=== PATIENT | female | born 1960 | race Caucasian/White ===

== ENCOUNTER → 2017-06-16 | Outpatient (CLI) | payer OTHER | END | disposition home or self-care (01) | LOC: CFH 13:45 | PROVIDERS: ATTEND Family Medicine | DX: Z12.2 Encounter for screening for malignant neoplasm of respiratory organs (principal); C43.9 Malignant melanoma of skin, unspecified; K21.9 Gastro-esophageal reflux disease without esophagitis; F17.210 Nicotine dependence, cigarettes, uncomplicated; J45.909 Unspecified asthma, uncomplicated; R63.4 Abnormal weight loss; G89.29 Other chronic pain; R10.9 Unspecified abdominal pain | CPT/HCPCS: G0297 ==

== ENCOUNTER → 2017-12-17 | Outpatient (CLI) | payer OTHER | END | disposition home or self-care (01) | LOC: CFH 07:30 | PROVIDERS: ATTEND Family Medicine | DX: R14.0 Abdominal distension (gaseous) (principal); R63.4 Abnormal weight loss; G35 Multiple sclerosis | CPT/HCPCS: 76700 ==

== ENCOUNTER 2018-02-15 12:28 | Observation (INO) | payer OTHER ==
[~2018-02-15] VITALS: Ht 157.5 cm; Wt 60.2 kg
[2018-02-15] MEDS ORDERED: IBUPROFEN 600 MG TABLET PO PRN (16:00)
[2018-02-15] MEDS ORDERED: NICOTINE 7 MG/24 HR PATCH.TD24 TD SCH (16:00)
[2018-02-15] MEDS ORDERED: hydrALAzine 20 MG/ML, 1ML IVPush PRN (16:00)
[2018-02-15] MEDS ORDERED: LABETALOL 5MG/ML, 20ML IVPush PRN (16:00)
[2018-02-15] MEDS ORDERED: ENOXAPARIN 40 MG/0.4 ML SQ SCH (16:00)
[2018-02-15] MEDS ORDERED: BISACODYL 10 MG SUPP PR PRN (16:00)
[2018-02-15] MEDS ORDERED: ACETAMINOPHEN 325 MG TABLET PO PRN (16:00)
[2018-02-15] MEDS ORDERED: ONDANSETRON ODT 4 MG PO PRN (16:00)
[2018-02-15] MEDS: PLEASE ENTER ALLERGIES MC SCH ×2 (16:22→16:59)
[2018-02-15] MEDS: PLEASE ENTER HEIGHT AND WEIGHT MC SCH (16:22)
[2018-02-15 18:38] VITALS: BP 118/76
[2018-02-15] MEDS: OXYcodone/APAP 5/325MG TABLET PO PRN (18:45)
[2018-02-15] MEDS ORDERED: PANT40GR PO (20:04)
[2018-02-15] MEDS ORDERED: DOCU-131 PO (20:07)
[2018-02-15] MEDS ORDERED: MONT5TAB6 PO (20:07)
[2018-02-15] MEDS ORDERED: CYCL-259 PO (20:07)
[2018-02-15] MEDS ORDERED: OXYC-302 PO (20:07)
[2018-02-16] MEDS: PLEASE ENTER HEIGHT AND WEIGHT MC SCH (00:30)
[2018-02-16 01:32] VITALS: BP 138/70
[2018-02-16] MEDS: OXYcodone/APAP 5/325MG TABLET PO PRN ×4 (01:37→13:50)
[2018-02-16 05:57] LABS: BASOPHILS # (AUTO) 0.04 x10^3/uL (0-0.1); BASOPHILS % (AUTO) 1 % (0-1); EOSINOPHILS # (AUTO) 0.14 x10^3/uL (0-0.4); EOSINOPHILS % (AUTO) 3 % (1-7); LYMPHOCYTES # (AUTO) 2.06 x10^3/uL (1-3.4); LYMPHOCYTES % (AUTO) 45 % (22-44); MD NO; MEAN CORPUSCULAR HEMOGLOBIN 28.9 pg (27.0-34.8); MEAN CORPUSCULAR HGB CONC 33.3 g/dL (32.4-35.8); MEAN CORPUSCULAR VOLUME 86.9 fL (80-100); MEAN PLATELET VOLUME 8.7 fL (7.4-10.4); MONOCYTES # (AUTO) 0.45 x10^3/uL (0.2-0.8); MONOCYTES % (AUTO) 10 % (2-9); NEUTROPHILS % (AUTO) 41 % (42-75); PLATELET COUNT 210 x10^3/uL (130-400); RED CELL DISTRIBUTION WIDTH 15.2 % (9.6-15.2)
[2018-02-16] MEDS ORDERED: OMEPRAZOLE 20 MG CAPSULE.DR PO SCH (06:00)
[2018-02-16 06:08] LABS: ANION GAP 6 mmol/L (5-15); CALCIUM 8.5 mg/dL (8.5-10.1); CHLORIDE 109 mmol/L (98-107); CREATININE 0.87 mg/dL (0.55-1.02)
[2018-02-16 07:28] VITALS: BP 121/71
[2018-02-16] MEDS ORDERED: SENNA/DOCUSATE TABLET PO SCH (09:00)
[2018-02-16 13:12] VITALS: BP 106/70
[2018-02-16] MEDS ORDERED: OMEP-110 PO (14:36)
[2018-02-16] MEDS ORDERED: OXYC-302 PO (14:37)
[2018-02-16] MEDS ORDERED: METO25TA91 PO (14:38)
== END 2018-02-16 14:55 | disposition home or self-care (01) ==
LOC: INTOOBSV 15:17 → 5SO 15:17 → DCLOUNGE 02-16 14:41
PROVIDERS: ADMIT Family Medicine; ATTEND Family Medicine
DX: T40.2X1A Poisoning by other opioids, accidental (unintentional), initial encounter (principal); T46.5X1A Poisoning by other antihypertensive drugs, accidental (unintentional), initial encounter; I42.9 Cardiomyopathy, unspecified; G89.29 Other chronic pain; F17.200 Nicotine dependence, unspecified, uncomplicated; Y92.89 Other specified places as the place of occurrence of the external cause
CPT/HCPCS: 36415; 80048; 83735; 84100; 85025; G0378

== ENCOUNTER → 2018-07-20 | Outpatient (CLI) | payer OTHER ==
[~2018-07-20] MED LIST: CYCL-259 PO; DOCU-131 PO; METO25TA91 PO; MONT5TAB6 PO; OMEP-110 PO; OXYC-302 PO; PANT40GR PO
== END | disposition home or self-care (01) ==
LOC: CFH 11:26
PROVIDERS: ATTEND Nurse Practitioner Family
DX: R63.4 Abnormal weight loss (principal)
CPT/HCPCS: 74018

== ENCOUNTER → 2018-07-21 | Outpatient (CLI) | payer OTHER | END | disposition home or self-care (01) | LOC: CFH 11:21 | PROVIDERS: ATTEND Family Medicine | DX: Z12.2 Encounter for screening for malignant neoplasm of respiratory organs (principal); R63.4 Abnormal weight loss; F17.200 Nicotine dependence, unspecified, uncomplicated | CPT/HCPCS: 74018; G0297 ==

== ENCOUNTER → 2018-07-28 | Outpatient (CLI) | payer OTHER ==
[~2018-07-28] MED LIST changes: +REGADENOSON 0.4 MG/5 ML SYRINGE ONE
== END | disposition home or self-care (01) ==
LOC: CFH 12:35
PROVIDERS: ATTEND Internal Medicine Cardiovascular Disease
DX: Z01.810 Encounter for preprocedural cardiovascular examination (principal); I34.0 Nonrheumatic mitral (valve) insufficiency
CPT/HCPCS: 78452; 93017; A9502; J2785

== ENCOUNTER 2018-08-18 11:43 | Emergency (ER) | payer OTHER ==
[~2018-08-18] VITALS: Ht 167.6 cm; Wt 53.9 kg
[~2018-08-18 11:43] MED LIST changes: -REGADENOSON 0.4 MG/5 ML SYRINGE ONE
[2018-08-18 12:28] LABS: BASOPHILS # (AUTO) 0.05 x10^3/uL (0-0.1); BASOPHILS % (AUTO) 1 % (0-1); EOSINOPHILS # (AUTO) 0.06 x10^3/uL (0-0.4); EOSINOPHILS % (AUTO) 1 % (1-7); LYMPHOCYTES # (AUTO) 1.51 x10^3/uL (1-3.4); LYMPHOCYTES % (AUTO) 25 % (22-44); MD NO; MEAN CORPUSCULAR HEMOGLOBIN 26.4 pg (27.0-34.8); MEAN CORPUSCULAR HGB CONC 31.5 g/dL (32.4-35.8); MEAN CORPUSCULAR VOLUME 83.8 fL (80-100); MEAN PLATELET VOLUME 8.7 fL (7.4-10.4); MONOCYTES # (AUTO) 0.37 x10^3/uL (0.2-0.8); MONOCYTES % (AUTO) 6 % (2-9); NEUTROPHILS # (AUTO) 3.98 x10^3/uL (1.8-6.8); NEUTROPHILS % (AUTO) 67 % (42-75); PLATELET COUNT 299 x10^3/uL (130-400); RED BLOOD COUNT 3.79 x10^6/uL (3.82-5.3); RED CELL DISTRIBUTION WIDTH 17.6 % (9.6-15.2)
[2018-08-18 12:40] LABS: ALANINE AMINOTRANSFERASE 11 U/L (12-78); ALBUMIN 2.7 g/dL (3.4-5.0); ANION GAP 5 mmol/L (5-15); CALCIUM 8.4 mg/dL (8.5-10.1); CHLORIDE 105 mmol/L (98-107)
[2018-08-18 12:43] LABS: ALKALINE PHOSPHATASE 59 U/L (45-117); BILIRUBIN,TOTAL 0.5 mg/dL (0.2-1.0); CREATININE 0.92 mg/dL (0.55-1.02); TOTAL PROTEIN 5.8 g/dL (6.4-8.2)
--- NOTE | 2018-08-18 15:39 | NUR ---
AMBULATORY TO ROOM FROM LOBBY. NAD.
--- NOTE | 2018-08-18 15:46 | NUR ---
pt to room from lobby, changed into gown, responds approp to staff, NAD at rest, comfort measure provided, call light within reach.
[2018-08-18] MEDS ORDERED: METHYLNALTREXONE 12 MG/0.6 ML SYR SQ ONE (15:55)
[2018-08-18] MEDS ORDERED: METHYLNALTREXONE 12 MG/0.6 ML SQ ONE (16:00)
[2018-08-18 16:21] LABS: MICROSCOPIC NOT IND
[2018-08-18 16:28] LABS: CULTURE INDICATED? NO
[2018-08-18] MEDS ORDERED: OMNIPAQUE 350 MG/ML, 100ML BOTTLE ONE (16:28)
[2018-08-18 17:01] VITALS: BP 134/59
--- NOTE | 2018-08-18 17:01 | NUR ---
pt continues to lay on gurney awake & calm, watching TV, responds approp to staff, NAD at rest, comfort measure provided, call light within reach.
--- NOTE | 2018-08-18 17:25 | NUR ---
Patient given discharge instructions and Rx, they have confirmed that they understand the instructions. Patient ambulatory with steady gait.
== END 2018-08-18 17:26 | disposition home or self-care (01) ==
LOC: ED 17:05
DX: K59.00 Constipation, unspecified (principal); R10.32 Left lower quadrant pain
CPT/HCPCS: 36415; 74021; 74177; 80053; 81003; 85025; 96372; 99284; Q9967

== ENCOUNTER 2018-10-27 11:02 | Outpatient (CLI) | payer OTHER | END 2018-10-27 23:59 | disposition home or self-care (01) | LOC: RAD 11:02 | PROVIDERS: ATTEND Family Medicine | DX: R60.0 Localized edema (principal) ==

== ENCOUNTER 2018-12-24 12:14 | Outpatient (CLI) | payer OTHER ==
[2018-12-24] MEDS ORDERED: OMNIPAQUE 350 MG/ML, 100ML BOTTLE ONE (16:16)
== END 2018-12-24 23:59 | disposition home or self-care (01) ==
LOC: CFH 12:14
PROVIDERS: ATTEND Family Medicine
DX: R60.0 Localized edema (principal); R59.1 Generalized enlarged lymph nodes; J98.4 Other disorders of lung
CPT/HCPCS: 74174; Q9967

== ENCOUNTER 2019-06-28 06:53 | Day surgery (SDC) | payer OTHER ==
[~2019-06-28] VITALS: Ht 157.5 cm; Wt 56.0 kg
[~2019-06-28 06:53] MED LIST changes: +CYAN100T2 PO; +FERR-46 PO; +FLUT1DIS3 INH; +FOLI-17 PO; +FURO20TA3 PO; +MONT10TA6 PO; +PAIN PUMP; +POTA10TA5 PO; +TIZA4CAP PO
[2019-06-28] MEDS ORDERED: LACTATED RINGERS 1,000 ML IV SCH (07:10)
[2019-06-28 07:22] VITALS: BP 88/55
[2019-06-28] MEDS ORDERED: CHLORHEXIDINE 15 ML UDC MM ONE (07:30)
[2019-06-28] MEDS ORDERED: LIDOCAINE-MPF 1%, 2ML INFIL ONE (07:30)
[2019-06-28] MEDS ORDERED: FENTANYL PF 100 MCG/2ML ONE (08:25)
[2019-06-28] MEDS ORDERED: ONDANSETRON 2MG/ML, 2ML ONE (08:44)
[2019-06-28] MEDS ORDERED: NEOSTIGMINE 1 MG/ML, 10ML ONE (08:44)
[2019-06-28] MEDS ORDERED: SUCCINYLCHOLINE 20 MG/ML, 10ML ONE (08:44)
[2019-06-28] MEDS ORDERED: GLYCOPYRROLATE 0.2MG/1ML, 5ML ONE (08:44)
[2019-06-28] MEDS ORDERED: DEXAMETHASONE 4 MG/ML, 1ML ONE (08:44)
[2019-06-28] MEDS ORDERED: ROCURONIUM 10MG/ML,5ML ONE (08:44)
[2019-06-28] MEDS ORDERED: PROPOFOL 10 MG/ML, 20ML ONE (08:44)
[2019-06-28] MEDS ORDERED: CEFAZOLIN 1,000 MG ONE (08:44)
[2019-06-28] MEDS ORDERED: ONDANSETRON 2MG/ML, 2ML IV PRN (09:00)
[2019-06-28] MEDS ORDERED: FENTANYL PF 100 MCG/2ML IV PRN (09:00)
[2019-06-28] MEDS ORDERED: ACETAMINOPHEN 325 MG TABLET PO PRN (09:00)
[2019-06-28] MEDS ORDERED: LORazepam 2 MG/ML, 1ML IVPush PRN (09:00)
[2019-06-28] MEDS ORDERED: OXYcodone 5 MG/5 ML ORAL.SOL UDC PO PRN (09:00)
[2019-06-28] MEDS ORDERED: PROMETHAZINE 25 MG/ML, 1ML IV PRN (09:00)
[2019-06-28] MEDS ORDERED: HYDROmorphone 2 MG/ML, 1ML IVPush PRN (09:00)
[2019-06-28] MEDS ORDERED: PROMETHAZINE 25 MG SUPP PR PRN (09:00)
[2019-06-28] MEDS ORDERED: ONDANSETRON ODT 8 MG PO PRN (09:00)
[2019-06-28] MEDS ORDERED: OXYcodone 5 MG/5 ML ORAL.SOL UDC ONE (09:26)
== END 2019-06-28 11:10 | disposition home or self-care (01) ==
LOC: OUT 06:53
PROVIDERS: ATTEND Internal Medicine Geriatric Medicine
DX: K31.89 Other diseases of stomach and duodenum (principal); K31.7 Polyp of stomach and duodenum; K59.09 Other constipation; K21.9 Gastro-esophageal reflux disease without esophagitis; I25.2 Old myocardial infarction; J45.909 Unspecified asthma, uncomplicated; E88.09 Other disorders of plasma-protein metabolism, not elsewhere classified; D50.0 Iron deficiency anemia secondary to blood loss (chronic); Z79.899 Other long term (current) drug therapy; Z88.8 Allergy status to other drugs, medicaments and biological substances; Z90.49 Acquired absence of other specified parts of digestive tract; Z90.5 Acquired absence of kidney; Z90.710 Acquired absence of both cervix and uterus; Z98.890 Other specified postprocedural states
CPT/HCPCS: 43236; 43251; 43259; 88305; 93005; J0330; J0690; J1100; J2405; J2704; J2710; J3010; J7120

== ENCOUNTER → 2019-07-13 | Outpatient (CLI) | payer OTHER ==
[~2019-07-13] VITALS: Ht 157.5 cm; Wt 56.4 kg
[~2019-07-13] MED LIST changes: +FERRIC CARBOXYMALTOSE 750 MG in SODIUM CHLORIDE 0.9% 100 ML IV ONE
[2019-07-13 15:12] VITALS: BP 82/43
== END | disposition home or self-care (01) ==
LOC: INFUSION 13:58
PROVIDERS: ATTEND Internal Medicine Nephrology
DX: N18.3 Chronic kidney disease, stage 3 (moderate) (principal); D63.1 Anemia in chronic kidney disease; R53.83 Other fatigue; I25.2 Old myocardial infarction; K21.9 Gastro-esophageal reflux disease without esophagitis; J45.909 Unspecified asthma, uncomplicated; Z90.49 Acquired absence of other specified parts of digestive tract; Z90.710 Acquired absence of both cervix and uterus
CPT/HCPCS: 96365; J1439

== ENCOUNTER → 2019-07-21 | Outpatient (CLI) | payer OTHER ==
[~2019-07-21] VITALS: Ht 157.5 cm; Wt 58.0 kg
[2019-07-21 16:30] VITALS: BP 94/56
== END | disposition home or self-care (01) ==
LOC: INFUSION 09:53
PROVIDERS: ATTEND Internal Medicine Nephrology
DX: E61.1 Iron deficiency (principal); I12.9 Hypertensive chronic kidney disease with stage 1 through stage 4 chronic kidney disease, or unspecified chronic kidney disease; N18.3 Chronic kidney disease, stage 3 (moderate); D63.1 Anemia in chronic kidney disease; R53.83 Other fatigue; N13.729 Vesicoureteral-reflux with reflux nephropathy without hydroureter, unspecified; Q60.0 Renal agenesis, unilateral; M54.5 Low back pain; K21.9 Gastro-esophageal reflux disease without esophagitis; I25.2 Old myocardial infarction; F41.9 Anxiety disorder, unspecified; F32.9 Major depressive disorder, single episode, unspecified; Z79.899 Other long term (current) drug therapy; Z90.710 Acquired absence of both cervix and uterus; Z90.5 Acquired absence of kidney; Z90.49 Acquired absence of other specified parts of digestive tract
CPT/HCPCS: 96365; J1439

== ENCOUNTER → 2020-01-10 | Outpatient (CLI) | payer OTHER ==
[~2020-01-10] MED LIST changes: -CYAN100T2 PO; +CYAN100T22 PO; -FERRIC CARBOXYMALTOSE 750 MG in SODIUM CHLORIDE 0.9% 100 ML IV ONE
== END | disposition home or self-care (01) ==
LOC: CFH 10:20
PROVIDERS: ATTEND Nurse Practitioner
DX: M46.1 Sacroiliitis, not elsewhere classified (principal); M51.36 Other intervertebral disc degeneration, lumbar region; M47.816 Spondylosis without myelopathy or radiculopathy, lumbar region
CPT/HCPCS: 72120; 72202

== ENCOUNTER → 2020-06-28 | Outpatient (CLI) | payer OTHER ==
[~2020-06-28] MED LIST changes: -CYCL-259 PO; +CYCL10TA2 PO; -FOLI-17 PO; +FOLI1TAB32 PO; -OXYC-302 PO; +OXYC1TAB14 PO; +REGADENOSON 0.4 MG/5 ML SYRINGE ONE
== END | disposition home or self-care (01) ==
LOC: CFH 07:01
PROVIDERS: ATTEND Internal Medicine Cardiovascular Disease
DX: I25.2 Old myocardial infarction (principal); I34.0 Nonrheumatic mitral (valve) insufficiency; I51.81 Takotsubo syndrome; Z72.0 Tobacco use
CPT/HCPCS: 78452; 93017; 93306; A9502; J2785